=== PATIENT | male | born 1980 | race American Indian/Alaskan Native ===

== ENCOUNTER 2020-08-25 16:19 | Emergency (ER) | payer SELFPAY ==
--- NOTE | 2020-08-25 18:04 | Emergency Department Report ---
ED Chest Pain HPI - General Chief Complaint: Chest Pain Stated Complaint: CHEST PAIN/AMS Time Seen by Provider: 08/25/20 17:32 Source: patient Mode of arrival: Stretcher Limitations: No Limitations - History of Present Illness Initial Comments: This is a 39-year-old -[place] male presents to the emergency department via EMS with a complaint of chest pain and a questionable syncopal episode. Patient says that he has been having constant generalized chest pain since Monday evening, 2 days ago. He says that EMS came out to see him at that time and put him on the monitor but he did not want to go to the hospital at that time. The chest pain continued this evening and the patient says that he was told that he passed out and fell down a flight of stairs. Patient says that he was not "feeling it at the time", but now complains of some mid back pain and pain to the left lower leg. Patient has a history of hypertension and says that he was previously diagnosed with pericarditis. He is a tobacco smoker but denies any illicit drug use. He did not take anything, nor receive anything, for his symptoms prior to presentation today. Patient did have recent travel to [place] and returned last , 5 days ago. Severity scale (0 -10): 7 - Related Data Allergies Allergy/AdvReac Type Severity Reaction Status Date / Time No Known Allergies Allergy Verified 08/25/20 18:11 Heart Score - HEART Score History: Slightly suspicious EKG: Normal Age: < 45 Risk factors: 1-2 risk factors Troponin: < normal limit HEART Score: 1 - Critical Actions Critical Actions: 0-3 pts:0.9-1.7%risk of adverse cardiac event.Candidate for discharge ED Review of Systems ROS: Stated complaint: CHEST PAIN/AMS Other details as noted in HPI Comment: All other systems reviewed and negative Constitutional: denies: chills, fever Eyes: denies: eye pain, vision change ENT: denies: ear pain, throat pain Respiratory: denies: cough, shortness of breath Cardiovascular: chest pain. denies: palpitations Gastrointestinal: denies: abdominal pain, vomiting Genitourinary: denies: dysuria, discharge Musculoskeletal: back pain, arthralgia. denies: joint swelling Skin: denies: rash, lesions Neurological: denies: headache, weakness ED Past Medical Hx - Past Medical History Hx Hypertension: Yes Additional medical history: Scoliosis - Social History Smoking Status: Current Every Day Smoker Substance Use Type: Alcohol, Marijuana ED Physical Exam - General Limitations: No Limitations - Other Other exam information: GENERAL: The patient is well-developed well-nourished. HENT: Normocephalic. Atraumatic. Patient has moist mucous membranes. EYES: Extraocular motions are intact. NECK: Supple. Trachea is midline. CHEST/LUNGS: Clear to auscultation. There is no respiratory distress noted. HEART/CARDIOVASCULAR: Regular. There is no tachycardia. There is no murmur or rub. ABDOMEN: Abdomen is soft, nontender. Patient has normal bowel sounds. SKIN: Skin is warm and dry. NEURO: The patient is awake, alert, and oriented. The patient is cooperative. The patient has no focal neurologic deficits. Normal speech. MUSCULOSKELETAL: There is tenderness to palpation to the left lower leg but no obvious deformity. There is no limitation range of motion. BACK: There is both midline and paraspinal mid thoracic pain. ED Course Vital Signs 08/25/20 08/25/20 17:50 17:54 Temperature 97.6 F Pulse Rate 74 Respiratory 18 13 Rate Blood Pressure 153/91 [Right] O2 Sat by Pulse 100 100 Oximetry HOWARD score - Howard Score Age > 65: (0) No Aspirin use within the Past 7 Days: (0) No 3 or more CAD Risk Factors: (0) No 2 or more Angina events in past 24 hrs: (1) Yes Known CAD with more than 50% Stenosis: (0) No Elevated Cardiac Markers: (0) No ST Deviation Greater than 0.5mm: (0) No HOWARD Score: 1 ED Medical Decision Making - Lab Data Result diagrams: 08/25/20 17:52 08/25/20 17:52 - EKG Data -: EKG Interpreted by Me EKG shows normal: sinus rhythm, axis, intervals, QRS complexes, ST-T waves (Early repolarization) Rate: normal - EKG Data When compared to previous EKG there are: previous EKG unavailable Interpretation: normal EKG - Radiology Data Radiology results: image reviewed interpreted by me: Chest x-ray does not show any acute process. There are no pleural effusions, obvious pneumonia and there is no pneumothorax. No significant cardiomegaly. X-ray of the left tib-fib does not show any fracture, dislocation, or any acute process. X-ray of the thoracic spine does not show any fracture, subluxation, or any acute process. - Medical Decision Making This patient presents to the emergency department with complaint of chest pain that has been going on consistently for the past 2 days. The patient also reports an alleged syncopal episode prior to presentation. The patient has some reproducible tenderness to palpation along the left lower extremity, mid-back. X-rays were done of the left tib-fib and the thoracic spine that did not show any fractures, dislocations, subluxation, or any acute process. Chest x-ray did not show any pneumonia, pleural effusions, pneumothorax, or any other acute process. EKG did not have any morphology consistent with ST elevation myocardial infarction, dysrhythmia or ischemia. Patient's labs have been mostly unremarkable including CBC, metabolic panel, negative troponin and a negative D-dimer. Vital signs have been reassuring throughout his ED course. The patient was given a dose of Toradol with some improvement of his discomfort. The patient is low on the heart and HOWARD score. He was reevaluated multiple times over multiple hours and there has been no further syncopal episodes, seizure-like activity. Patient does not have any focal, motor or sensory deficits and his cranial nerves are intact. For all these reasons the patient appears safe for discharge home at this time. We discussed smoking cessation. The patient's contact information has been sent over to [facility] and someone from their office should be contacting him shortly for close outpatient follow-up as per our hospitals low risk chest pain protocol. He has been instructed to return to the emergency department with any worsening of his symptoms or with any acute distress. Critical Care Time: No Critical care attestation.: If time is entered above; I have spent that time in minutes in the direct care of this critically ill patient, excluding procedure time. ED Disposition Clinical Impression: Musculoskeletal pain Chest pain Qualifiers: Chest pain type: unspecified Qualified Code(s): R07.9 - Chest pain, unspecified Hypertension Qualifiers: Hypertension type: essential hypertension Qualified Code(s): I10 - Essential (primary) hypertension Syncope Qualifiers: Syncope type: unspecified Qualified Code(s): R55 - Syncope and collapse Disposition: TO HOME OR SELFCARE Is pt being admited?: No Condition: Stable Instructions: Nonspecific Chest Pain, Adult, Tobacco Use Disorder, Syncope, Hypertension, Adult, Chest Pain (ED), Syncope (ED), Hypertension (ED) Additional Instructions: Please follow-up with a primary care physician in the next few days. I have given you multiple referrals for local primary care physicians and clinics. I have sent your contact information over to the [facility], and someone from their office should be contacting you shortly for close outpatient follow-up. I will also give you the referral information for one of their manager financial, Dr. Robertson. I have given you a referral for a local orthopedist, Dr. Segal, to follow-up regarding your leg and back pains after your fall. Please try and quit smoking. Please try and stay away from foods that are high in salt and caffeinated products. Keep a blood pressure log. Return to the emergency department with any worsening of your symptoms, new or concerning symptoms not addressed during this current emergency department visit, or with any acute distress. Referrals: PRIMARY CARE, [Primary Care Provider] - 2-3 Days LYLE SEGAL MD [Staff Physician] - 2-3 Days KELLEY ROBERTSON MD [Staff Physician] - 2-3 Days DIVYA TAYLOR MD [Staff Physician] - 2-3 Days [facility] [Provider Group] - 2-3 Days Time of Disposition: 19:07
[2020-08-25 18:13] LABS: Basophils % (Auto) 0.5 % (0.0-1.8); Eosinophils % (Auto) 0.3 % (0.0-4.3); Hematocrit 49.2 % (35.5-45.6); Hemoglobin 16.7 gm/dl (11.8-15.2); Lymphocytes % (Auto) 35.1 % (13.4-35.0); Mean Corpuscular HGB Conc 34 % (32-34); Mean Corpuscular Volume 97 fl (84-94); Monocytes # (Auto) 0.4 K/mm3 (0.0-0.8); Monocytes % (Auto) 6.5 % (0.0-7.3); Platelet Count 242 K/mm3 (140-440); Red Blood Count 5.08 M/mm3 (3.65-5.03); Red Cell Distribution Width 12.1 % (13.2-15.2)
--- NOTE | 2020-08-25 18:29 | XRay Report ---
CHEST 2 VIEWS INDICATION: Chest pain for one day. COMPARISON: FINDINGS: Support devices: None. Heart: Within normal limits. Lungs/pleura: No acute air space or interstitial disease. No pneumothorax. Additional findings: None. IMPRESSION: No acute findings. THORACIC SPINE 2 VIEWS INDICATION: Back pain after fall. COMPARISON: None. IMPRESSION: Normal alignment. No significant discogenic DJD or facet arthropathy. No acute osseous or soft tissue abnormality. LEFT TIBIA AND FIBULA 2 VIEWS INDICATION: fall, leg pain. COMPARISON: None. IMPRESSION: No acute osseous or soft tissue abnormality. No significant DJD. Signer Name: Ulysses Mendiola Jr, MD Signed: 08/25/2020 6:28 PM Workstation Name: [id number]
[2020-08-25 18:34] LABS: Alanine Aminotransferase 25 units/L (7-56); Albumin 4.8 g/dL (3.9-5); BUN/Creatinine Ratio 13; Blood Urea Nitrogen 10 mg/dL (9-20); Calcium 9.6 mg/dL (8.4-10.2); Hemolysis Index 11
[2020-08-25] MEDS ORDERED: KETOROLAC 30 MG/1 ML INJ IM ONE (18:54)
[2020-08-25] MEDS ORDERED: KETOROLAC 30 MG/1 ML INJ ONE (21:19)
[2020-08-25 21:30] VITALS: BP 132/90
== END 2020-08-25 21:38 | disposition home or self-care (01) ==
LOC: ED 16:19
DX: I10 Essential (primary) hypertension (principal); M79.18 Myalgia, other site; R55 Syncope and collapse; R07.9 Chest pain, unspecified; F12.90 Cannabis use, unspecified, uncomplicated; F17.200 Nicotine dependence, unspecified, uncomplicated
CPT/HCPCS: 36415; 71046; 72070; 73590; 80053; 84484; 85025; 85379; 93005; 96372; 99284; J1885